=== PATIENT | male | born 1960 | race Caucasian/White ===

== ENCOUNTER → 2016-09-27 | Outpatient (CLI) | payer OTHER ==
--- NOTE | 2016-09-27 19:35 | CT ---
EXAMINATION TYPE: CT chest wo con DATE OF EXAM: 09/27/2016 COMPARISON: 10/04/2015 HISTORY: Lung mass CT DLP: 210.2 mGycm. Automated Exposure Control for Dose Reduction was Utilized. TECHNIQUE: CT scan of the thorax is performed without IV contrast. FINDINGS: There is diffuse pulmonary emphysema. There is a 1 centenary calcified granuloma in the anterior left upper lobe. There is a 1 cm calcified granuloma in the posterior segment right upper lobe. I see no evidence of a pulmonary mass. There is no pleural effusion. There are no hilar masses. There is no sign of mediastinal adenopathy. There is no evidence of aortic aneurysm. There are calcified granulomata at the left pulmonary hilum. IMPRESSION: Emphysema. Healed granulomatous disease. No evidence of a pulmonary mass. No evidence of right middle lobe nodule. No adverse change compared to old exam.
== END | disposition home or self-care (01) ==
LOC: RADCTMAIN 19:03
PROVIDERS: ATTEND Family Medicine
DX: J43.9 Emphysema, unspecified (principal)
CPT/HCPCS: 71250